=== PATIENT | male | born 1990 | race Caucasian/White ===

== ENCOUNTER 2025-08-29 04:04 | Emergency (ER) | payer OTHER ==
[~2025-08-29] VITALS: Ht 190.5 cm; Wt 98.0 kg
[2025-08-29 04:10] VITALS: O2SAT 99
[2025-08-29 04:24] VITALS: BP 142/91; PULSE 85; RESP 16; TEMP 37; O2SAT 100
== END 2025-08-29 05:48 | disposition left against medical advice (07) ==
LOC: ER 04:04
DX: F10.239 Alcohol dependence with withdrawal, unspecified (principal); Y90.9 Presence of alcohol in blood, level not specified
CPT/HCPCS: 99282